=== PATIENT | female | born 1975 | race Caucasian/White ===

== ENCOUNTER 2023-10-04 23:29 | Emergency (ER) | payer MEDICAID ==
[~2023-10-04] VITALS: Ht 154.9 cm; Wt 50.0 kg
[2023-10-05 00:05] VITALS: BP 176/108; PULSE 105; RESP 18; TEMP 98.5; O2SAT 98
[2023-10-05] MEDS: ACETAMINOPHEN 325MG TABLET PO ONE (02:19)
[2023-10-05] MEDS: CYCLOBENZAPRINE 10MG TABLET PO ONE (02:19)
[2023-10-05] MEDS ORDERED: ACET-2708 MT (03:02)
== END 2023-10-05 06:03 | disposition home or self-care (01) ==
LOC: ER 23:29
DX: M79.605 Pain in left leg (principal); M79.604 Pain in right leg; Z98.890 Other specified postprocedural states
CPT/HCPCS: 93970; 99284